=== PATIENT | female | born 1985 | race American Indian/Alaskan Native ===

== ENCOUNTER 2019-09-09 07:53 | Emergency (ER) | payer OTHER ==
[2019-09-09] MEDS ORDERED: IBUPROFEN 800 MG TAB PO ONE (08:40)
--- NOTE | 2019-09-09 09:17 | XRay Report ---
CHEST 1 VIEW INDICATION: cough fever COMPARISON: None FINDINGS: Support devices: None Heart: Normal Lungs/Pleura: No acute pulmonary or pleural findings. IMPRESSION: 1. No acute disease. Signer Name: Augustine Dunne MD Signed: 09/09/2019 9:13 AM Workstation Name: [id number]
--- NOTE | 2019-09-09 09:31 | Emergency Department Report ---
- General Chief Complaint: Headache Stated Complaint: COUGH,HEADACHE Time Seen by Provider: 09/09/19 08:28 Source: patient Mode of arrival: Ambulatory Limitations: No Limitations - History of Present Illness Initial Comments: 34-year-old female with no significant past medical history presents to the hospital complaining of cough productive of thick sputum, frontal headache, and body aches x1 week. No fever reported although low-grade fever noted here in the ED. Patient denies shortness of breath. Patient works at a [employer] with positive COVID patients. Patient has not been tested for Kovic. Patient did not get a flu shot this flu season. - Related Data Previous Rx's Medication Instructions Recorded Last Taken Type Azithromycin [Zithromax Z-GIUSEPPE] 1 dose PO DAILY 5 Days tab 09/09/19 Unknown Rx Ibuprofen [Motrin] 800 mg PO Q8HR PRN #30 tablet 09/09/19 Unknown Rx Allergies Allergy/AdvReac Type Severity Reaction Status Date / Time No Known Allergies Allergy Verified 09/09/19 07:56 ED Review of Systems ROS: Stated complaint: COUGH,HEADACHE Other details as noted in HPI Comment: All other systems reviewed and negative ED Past Medical Hx - Past Medical History Previous Medical History?: No - Surgical History Past Surgical History?: No - Social History Smoking Status: Never Smoker Substance Use Type: None - Medications Home Medications: Home Medications Medication Instructions Recorded Confirmed Last Taken Type Azithromycin [Zithromax Z-GIUSEPPE] 1 dose PO DAILY 5 Days tab 09/09/19 Unknown Rx Ibuprofen [Motrin] 800 mg PO Q8HR PRN #30 tablet 09/09/19 Unknown Rx ED Physical Exam - General Limitations: No Limitations - Other Other exam information: General: No acute distress Head: Atraumatic Eyes: normal appearance ENT: Moist mucous membranes, mild frontal sinus tenderness no maxillary sinus tenderness Neck: Normal appearance, no midline tenderness Chest: Clear to auscultation bilaterally CV: Regular rate and rhythm Abdomen: Soft, normal bowel sounds, nontender, nondistended, no rebound or guarding Back: Normal inspection Extremity: Normal inspection, full range of motion Neuro: Alert O x 3, no facial asymmetry, speech clear, no gross motor sensory deficit Psych: Appropriate behavior Skin: No rash ED Course Vital Signs 09/09/19 09/09/19 07:57 08:36 Temperature 100.3 F H 98.9 F Pulse Rate 94 H 98 H Respiratory 16 13 Rate Blood Pressure 125/74 Blood Pressure 125/74 127/78 [Left] O2 Sat by Pulse 99 96 Oximetry ED Medical Decision Making - Lab Data Lab Results 09/09/19 Range/Units 08:40 Influenza A (Rapid) Negative (Negative) Influenza B (Rapid) Negative (Negative) - Radiology Data Radiology results: report reviewed CHEST 1 VIEW INDICATION: cough fever COMPARISON: None FINDINGS: Support devices: None Heart: Normal Lungs/Pleura: No acute pulmonary or pleural findings. IMPRESSION: 1. No acute disease. - Medical Decision Making Patient with URI sinusitis symptoms. Chest x-ray negative for infiltrate. Patient will be placed on Z-Giuseppe and encouraged to receive outpatient COVID testing since she does work at a [employer] with COVID positive patients. If positive patient will need to self isolate for 2 weeks. - Differential Diagnosis Viral syndrome, coronavirus, bronchitis, sinusitis Critical Care Time: No Critical care attestation.: If time is entered above; I have spent that time in minutes in the direct care of this critically ill patient, excluding procedure time. ED Disposition Clinical Impression: Sinusitis, Viral syndrome Disposition: TO HOME OR SELFCARE Is pt being admited?: No Does the pt Need Aspirin: No Condition: Stable Instructions: Sinusitis (ED), Viral Syndrome (ED), COVID-19 Additional Instructions: Take the medication as prescribed. Take Motrin as needed for pain or fever. Follow-up with your doctor or doctor/clinic provided. Return if symptoms worsen as indicated by your discharge instructions. I recommend that she receive outpatient coronavirus testing. If your test is positive you will need to inform you job and isolate from others for 14 days. You have been provided COVID discharge instructions (you will need outpatient testing). Prescriptions: Ibuprofen [Motrin] 800 mg PO Q8HR PRN #30 tablet PRN Reason: Pain , Severe (7-10) Azithromycin [Zithromax Z-GIUSEPPE] 1 dose PO DAILY 5 Days tab Referrals: PRIMARY MD GENOVEVA [Primary Care Provider] - 3-5 Days JAYNA MEJIA MD [Staff Physician] - 3-5 Days [facility] [Provider Group] - 3-5 Days Time of Disposition: 10:01
[2019-09-09 11:55] VITALS: BP 130/80
== END 2019-09-09 10:30 | disposition home or self-care (01) ==
LOC: ED 07:53
DX: J32.9 Chronic sinusitis, unspecified (principal); B34.9 Viral infection, unspecified; Z79.899 Other long term (current) drug therapy
CPT/HCPCS: 71045; 87400

== ENCOUNTER 2019-12-22 23:34 | Observation (INO) | payer OTHER, SELFPAY ==
[2019-12-23 00:19] LABS: Mean Corpuscular HGB Conc 27 % (30-34); Platelet Count 326 K/mm3 (140-440)
[2019-12-23 00:35] LABS: Alanine Aminotransferase 10 units/L (7-56); Albumin 4.3 g/dL (3.9-5); Blood Urea Nitrogen 10 mg/dL (7-17); Calcium 9.2 mg/dL (8.4-10.2); Hemolysis Index 0
[2019-12-23 00:40] LABS: BUN/Creatinine Ratio 20
[2019-12-23 01:08] LABS: Bacteria,Urine 1+ /HPF (Negative); Bilirubin,Urine NEG (Negative); Blood,Urine NEG (Negative); Color,Urine Yellow (Yellow); Mucus,Urine 3+ /HPF; Protein,Urine <15 mg/dL mg/dL (Negative)
[2019-12-23 01:14] LABS: Hematocrit 18.8 % (30.3-42.9); Mean Corpuscular Volume 51 fl (79-97)
[2019-12-23 01:15] LABS: Red Cell Distribution Width 23.9 % (13.2-15.2)
[2019-12-23] MEDS ORDERED: SODIUM CHLORIDE 0.9% 500 ML 500 ML IV ONE ×2 (01:58→03:35)
--- NOTE | 2019-12-23 02:01 | Emergency Department Report ---
ED Abdominal Pain HPI - General Chief Complaint: Abdominal Pain Stated Complaint: STOMACH PAIN/BLEEDING PUI?: No Time Seen by Provider: 12/23/19 01:57 Source: patient Mode of arrival: Ambulatory Limitations: No Limitations - History of Present Illness Initial Comments: Patient is a 34-year-old female that presents emergency room with complaints of lower abdominal pain and vaginal bleeding. Patient states she has had vaginal b leeding and abdominal pain for 2 weeks. Patient states that her abdominal pain is a 6 out of 10. Patient states that her pain is better with rest and worse with movement and palpation. Patient states that she has been bleeding heavily for approximately 2 weeks. Patient states she has not seen a [facility]. Patient states she does not have a primary care. Patient states she just recently moved 6 months ago from [place] to [place]. Patient states the pain is a stabbing pain. Patient states she has history of uterine fibroid. Patient denies bright red blood per rectum, melena, nausea and vomiting. Patient denies fever and chills. Patient denies recent travel. Patient denies recent international travel. Patient denies exposure to the novel coronavirus. Patient denies sick contacts. Patient denies fever and chills. Patient denies cough. Patient denies diarrhea. Patient denies coming in contact with anybody with symptoms of the novel coronavirus. MD Complaint: abdominal pain -: Sudden Location: LLQ, RLQ Radiation: none Migration to: no migration Severity scale (0 -10): 6 Quality: stabbing Consistency: constant Improves With: rest Worsens With: movement, other Associated Symptoms: denies: nausea, vomiting, diarrhea, fever, chills, constipation, dysuria, hematemesis, hematochezia, melena, hematuria, syncope - Related Data Previous Rx's Medication Instructions Recorded Last Taken Type Azithromycin [Zithromax Z-GIUSEPPE] 1 dose PO DAILY 5 Days tab 09/09/19 Unknown Rx Ibuprofen [Motrin] 800 mg PO Q8HR PRN #30 tablet 09/09/19 Unknown Rx Allergies Allergy/AdvReac Type Severity Reaction Status Date / Time No Known Allergies Allergy Verified 12/23/19 03:24 ED Review of Systems ROS: Stated complaint: STOMACH PAIN/BLEEDING Other details as noted in HPI Constitutional: denies: chills, fever Eyes: denies: eye pain, eye discharge, vision change ENT: denies: ear pain, throat pain Respiratory: denies: cough, shortness of breath, wheezing Cardiovascular: denies: chest pain, palpitations Endocrine: no symptoms reported Gastrointestinal: abdominal pain. denies: nausea, diarrhea Genitourinary: abnormal menses. denies: urgency, dysuria, discharge Musculoskeletal: denies: back pain, joint swelling, arthralgia Skin: denies: rash, lesions Neurological: denies: headache, weakness, paresthesias Psychiatric: denies: anxiety, depression Hematological/Lymphatic: denies: easy bleeding, easy bruising ED Past Medical Hx - Past Medical History Previous Medical History?: Yes Additional medical history: Uterine fibroids - Surgical History Past Surgical History?: Yes Hx Appendectomy: Yes - Family History Family history: no significant - Social History Smoking Status: Never Smoker Substance Use Type: Alcohol - Medications Home Medications: Home Medications Medication Instructions Recorded Confirmed Last Taken Type Azithromycin [Zithromax Z-GIUSEPPE] 1 dose PO DAILY 5 Days tab 09/09/19 Unknown Rx Ibuprofen [Motrin] 800 mg PO Q8HR PRN #30 tablet 09/09/19 Unknown Rx ED Physical Exam - General Limitations: No Limitations General appearance: alert, in no apparent distress - Head Head exam: Present: atraumatic, normocephalic - Eye Eye exam: Present: normal appearance - ENT ENT exam: Present: mucous membranes moist - Neck Neck exam: Present: normal inspection - Respiratory Respiratory exam: Present: normal lung sounds bilaterally. Absent: respiratory distress - Cardiovascular Cardiovascular Exam: Present: regular rate, normal rhythm. Absent: systolic murmur, diastolic murmur, rubs, gallop - GI/Abdominal GI/Abdominal exam: Present: soft, tenderness (Lower abdominal tenderness to palpation.), normal bowel sounds - Extremities Exam Extremities exam: Present: normal inspection - Back Exam Back exam: Present: normal inspection - Neurological Exam Neurological exam: Present: alert, oriented X3 - Psychiatric Psychiatric exam: Present: normal affect, normal mood - Skin Skin exam: Present: warm, dry, intact, normal color. Absent: rash ED Course Vital Signs 12/22/19 12/23/19 12/23/19 23:46 01:58 02:44 Temperature 99.0 F Pulse Rate 95 H 100 H Respiratory 18 18 18 Rate Blood Pressure 118/68 O2 Sat by Pulse 100 99 100 Oximetry 12/23/19 12/23/19 12/23/19 02:45 02:59 03:00 Temperature 98 F Pulse Rate 99 H 97 H 96 H Respiratory 20 18 20 Rate Blood Pressure 111/68 115/60 O2 Sat by Pulse 100 100 100 Oximetry 12/23/19 12/23/19 12/23/19 03:10 03:14 03:20 Temperature 98 F Pulse Rate 95 H 96 H 96 H Respiratory 15 18 23 Rate Blood Pressure 99/58 108/71 111/66 O2 Sat by Pulse 98 97 100 Oximetry 12/23/19 12/23/19 12/23/19 03:30 03:45 04:00 Temperature Pulse Rate 100 H 99 H 95 H Respiratory 17 17 12 Rate Blood Pressure 120/74 122/79 124/75 O2 Sat by Pulse 100 Oximetry - Reevaluation(s) Reevaluation #1: I discussed all results with patient. I discussed plan of care with patient. Patient agrees with plan of care and admission. Patient to be admitted to the hospitalist service. 12/23/19 03:30 - Consultations Consultation #1: [facility] consulted. I discussed the case with [facility]. [facility] has accepted the patient, Dr. Peraza. 12/23/19 03:30 ED Medical Decision Making - Lab Data Result diagrams: 12/23/19 00:02 12/23/19 00:02 - Radiology Data Radiology results: report reviewed CT abdomen pelvis w con INDICATION / CLINICAL INFORMATION: aleyda lower abd pain. TECHNIQUE: Axial CT imaging of abdomen and pelvis was obtained with IV contrast. Coronal and sagittal reformatted imaging obtained and reviewed. All CT scans at this location are performed using CT dose reduction for ALARA by means of automated exposure control. COMPARISON: None available. FINDINGS: CT abdomen with contrast demonstrates normal appearance of the liver, spleen, pancreas, kidneys, and adrenal glands. Gallbladder is unremarkable. No biliary dilatation. CT pelvis with contrast demonstrates an enlarged uterus. In the fundus of the uterus, there is a large solid mass measuring 7.6 cm in diameter. This is more than likely a uterine fibroid. Additionally, there is a large mass to the left of the uterus measuring 10 cm in diameter. It is unclear if this is an ovarian mass versus a pedunculated uterine fibroid. There is a smaller solid mass between the uterus and the left adnexal mass measuring 4.8 cm that more than likely is a pedunculated uterine fibroid as well. Right ovary is noted. A normal left ovary cannot be identified. A normal appendix is present in the right lower quadrant. No free fluid. No adenopathy. GI tract is normal. Visualized lung bases are grossly clear. No significant acute osseous abnormality. IMPRESSION: 1. Enlarged uterus measuring approximately 13 cm. The uterine fundus contains a mass measuring 7.6 cm, most likely uterine fibroid. 2. There is a 10 cm left adnexal mass contiguous with the uterus. Differential diagnosis includes ovarian mass versus pedunculated uterine fibroid. 3. There is a third mass midline of the pelvis measuring 4.8 cm also contiguous with the uterine fundus, most likely pedunculated fibroid. - Medical Decision Making Patient is a 34-year-old female that presents emergency room with complaints of vaginal bleeding for 2 weeks and abdominal pain. Patient has CT scan of the abdomen which shows multiple uterine fibroids and no other acute findings. Patient had labs done which showed severe anemia. Patient was typed and crossed for packed red blood cells. Patient's given Tylenol for abdominal pain. Patient admitted to the [facility] service and mother-baby. [employer] wants the patient to have 2 units of packed red blood cells since the patient is actively bleeding from the vagina and so severely anemic. Both units were ordered. Patient will require a CBC to be done after her first unit of blood. A communication order was placed in the system for the nursing staff. - Differential Diagnosis Abnormal vaginal bleeding. Uterine fibroid, anemia, abdominal pain Critical Care Time: Yes Critical care time in (mins) excluding proc time.: 35 Critical care attestation.: If time is entered above; I have spent that time in minutes in the direct care of this critically ill patient, excluding procedure time. Critical Care Time: 35 minutes ED Disposition Clinical Impression: Abnormal vaginal bleeding Anemia Qualifiers: Anemia type: unspecified type Qualified Code(s): D64.9 - Anemia, unspecified Uterine fibroid Qualifiers: Uterine leiomyoma location: unspecified location Qualified Code(s): D25.9 - Leiomyoma of uterus, unspecified Disposition: OP ADMIT IP TO THIS HOSP Is pt being admited?: Yes Does the pt Need Aspirin: No Condition: Critical Time of Disposition: 03:31
--- NOTE | 2019-12-23 02:48 | Cat Scan Report ---
CT abdomen pelvis w con INDICATION / CLINICAL INFORMATION: aleyda lower abd pain. TECHNIQUE: Axial CT imaging of abdomen and pelvis was obtained with IV contrast. Coronal and sagittal reformatte d imaging obtained and reviewed. All CT scans at this location are performed using CT dose reduction for ALARA by means of automated exposure control. COMPARISON: None available. FINDINGS: CT abdomen with contrast demonstrates normal appearance of the liver, spleen, pancreas, kidneys, and adrenal glands. Gallbladder is unremarkable. No biliary dilatation. CT pelvis with contrast demonstrates an enlarged uterus. In the fundus of the uterus, there is a larg e solid mass measuring 7.6 cm in diameter. This is more than likely a uterine fibroid. Additionally, there is a large mass to the left of the uterus measuring 10 cm in diameter. It is unclear if this is an ovarian mass versus a pedunculated uterine fibroid. There is a smaller solid mass between the soboba isidro and the left adnexal mass measuring 4.8 cm that more than likely is a pedunculated uterine fibroi d as well. Right ovary is noted. A normal left ovary cannot be identified. A normal appendix is prese nt in the right lower quadrant. No free fluid. No adenopathy. GI tract is normal. Visualized lung bases are grossly clear. No significant acute osseous abnormality. IMPRESSION: 1. Enlarged uterus measuring approximately 13 cm. The uterine fundus contains a mass measuring 7.6 cm , most likely uterine fibroid. 2. There is a 10 cm left adnexal mass contiguous with the uterus. Differential diagnosis includes ova tuyet mass versus pedunculated uterine fibroid. 3. There is a third mass midline of the pelvis measuring 4.8 cm also contiguous with the uterine fund us, most likely pedunculated fibroid. Signer Name: Trish Soto MD Signed: 12/23/2019 2:44 AM Workstation Name: [id number]
[2019-12-23] MEDS ORDERED: ACETAMINOPHEN 500 MG TAB PO ONE (03:22)
[2019-12-23] MEDS ORDERED: ACETAMINOPHEN 500 MG TAB ONE (03:25)
[2019-12-23 05:40] LABS: Anisocytosis 1+; Basophils % (Manual) 0 % (0.0-1.8); Hypochromasia 1+; Platelet Estimate Consistent w Auto; Total Cells Counted 100
[2019-12-23 08:12] LABS: Hematocrit 19.7 % (30.3-42.9); Hemoglobin 5.4 gm/dl (10.1-14.3)
[2019-12-23] MEDS: IBUPROFEN 800 MG TAB PO PRN ×2 (09:05→15:28)
[2019-12-23] MEDS ORDERED: SODIUM CHLORIDE 0.9% 250ML 250 ML ONE (09:26)
[2019-12-23] MEDS ORDERED: medroxyPROGESTERone ACETATE 5 MG TAB PO SCH (10:00)
[2019-12-23 12:56] LABS: Mean Corpuscular HGB Conc 29 % (30-34); Platelet Count 247 K/mm3 (140-440); Red Blood Count 3.88 M/mm3 (3.65-5.03)
[2019-12-23 13:16] LABS: Hematocrit 22.5 % (30.3-42.9); Hemoglobin 6.4 gm/dl (10.1-14.3); Mean Corpuscular Volume 58 fl (79-97)
--- NOTE | 2019-12-23 14:59 | History and Physical Report ---
History of Present Illness Date of examination: 12/23/19 Date of admission: 12/23/19 03:34 History of present illness: PT is a G0 who presented today with 2 weeks of heavy menses, although she is no longer bleeding. Provera given earlier today. Hgn on admission was 5.0. Pt is no s/p 2 units PRBCs. No anemic sxs. Her menses are usually heavy but not as heavy and prolonged as this past one. She notes a h/o fibroids. Pt had a CT showing a larger fibroid uterus. U/S not done. Past History Past Medical History: other (anemia) Past Surgical History: appendectomy - Obstetrical History : 0 Medications and Allergies Allergies Allergy/AdvReac Type Severity Reaction Status Date / Time No Known Allergies Allergy Verified 12/23/19 03:24 Home Medications Medication Instructions Recorded Confirmed Last Taken Type Azithromycin [Zithromax Z-GIUSEPPE] 1 dose PO DAILY 5 Days tab 09/09/19 12/23/19 Unknown Rx Ibuprofen [Motrin] 800 mg PO Q8HR PRN #30 tablet 09/09/19 12/23/19 Unknown Rx Active Meds: Active Medications Ibuprofen (Ibuprofen) 800 mg PO Q8H PRN PRN Reason: Pain, Mild (1-3) Last Admin: 12/23/19 09:05 Dose: 800 mg Documented by: Medroxyprogesterone Acetate (Provera) 10 mg PO QDAY KING[place]ON Last Admin: 12/23/19 09:16 Dose: 10 mg Documented by: Review of Systems All systems: negative (except HPI) - Vital Signs Vital signs: Vital Signs Temp Pulse Resp BP Pulse Ox 99.0 F 95 H 18 118/68 100 12/22/19 23:46 12/22/19 23:46 12/22/19 23:46 12/22/19 23:46 12/22/19 23:46 Temp Pulse Resp BP Pulse Ox 98.2 F 78 16 113/72 100 12/23/19 11:46 12/23/19 11:46 12/23/19 11:46 12/23/19 11:46 12/23/19 11:46 Results Result Diagrams: 12/23/19 12:28 12/23/19 00:02 Abnormal lab results 08/15/20 08/15/20 08/15/20 Range/Units 00:02 00:02 01:58 Hgb 5.0 L* (10.1-14.3) gm/dl Hct 18.8 L* (30.3-42.9) % MCV 51 L (79-97) fl MCH 13 L (28-32) pg MCHC 27 L (30-34) % RDW 23.9 H (13.2-15.2) % Creatinine 0.5 L (0.6-1.2) mg/dL Crossmatch See Detail 12/23/19 12/23/19 Range/Units 07:42 12:28 Hgb 5.4 L* 6.4 L (10.1-14.3) gm/dl Hct 19.7 L* 22.5 L (30.3-42.9) % MCV 58 L (79-97) fl MCH 17 L (28-32) pg MCHC 29 L (30-34) % RDW 35.0 H (13.2-15.2) % Creatinine (0.6-1.2) mg/dL Crossmatch All other labs normal. Assessment and Plan - Patient Problems (1) Abnormal vaginal bleeding Current Visit: Yes Status: Acute Plan to address problem: Will send home with Provera. PT advised to f/u in office in a week (2) Anemia Current Visit: Yes Status: Acute Qualifiers: Anemia type: unspecified type Qualified Code(s): D64.9 - Anemia, unspecified Plan to address problem: Will send home with Iron BID. (3) Uterine fibroid Current Visit: Yes Status: Acute Qualifiers: Uterine leiomyoma location: unspecified location Qualified Code(s): D25.9 - Leiomyoma of uterus, unspecified
--- NOTE | 2019-12-23 15:15 | Short Stay Summary ---
Short Stay Documentation Date of service: 12/23/19 Narrative H&P: Patient presented with anemia and menorrhagia. Her hemoglobin was 5.0. After 2 units of blood her hemoglobin was up to 6.4. Vitals are stable. Patient sent home with a prescription for Provera for 10 days and twice daily iron. - History H&P: dictated - Allergies and Medications Current Medications: Allergies No Known Allergies Allergy (Verified 12/23/19 03:24) Home Medications Medication Instructions Recorded Confirmed Last Taken Type Azithromycin [Zithromax Z-GIUSEPPE] 1 dose PO DAILY 5 Days tab 09/09/19 12/23/19 Unknown Rx Ibuprofen [Motrin] 800 mg PO Q8HR PRN #30 tablet 09/09/19 12/23/19 Unknown Rx Ferrous Sulfate [Feosol 325 MG tab] 325 mg PO BID #60 tablet 12/23/19 Unknown Rx medroxyPROGESTERone ACETATE 10 mg PO QDAY #10 tablet 12/23/19 Unknown Rx [Provera] Active Medications Ibuprofen (Ibuprofen) 800 mg PO Q8H PRN PRN Reason: Pain, Mild (1-3) Last Admin: 12/23/19 09:05 Dose: 800 mg Documented by: Medroxyprogesterone Acetate (Provera) 10 mg PO QDAY K[place]ON Last Admin: 12/23/19 09:16 Dose: 10 mg Documented by: - Disposition Condition at discharge: Stable Disposition: DC-01 TO HOME OR SELFCARE - Discharge Diagnoses (1) Abnormal vaginal bleeding Status: Acute (2) Anemia Status: Acute Qualifiers: Anemia type: unspecified type Qualified Code(s): D64.9 - Anemia, unspecified (3) Uterine fibroid Status: Acute Qualifiers: Uterine leiomyoma location: unspecified location Qualified Code(s): D25.9 - Leiomyoma of uterus, unspecified Short Stay Discharge Plan Follow up with: PRIMARY CARE, [Primary Care Provider] - 3-5 Days Prescriptions: Ferrous Sulfate [Feosol 325 MG tab] 325 mg PO BID #60 tablet medroxyPROGESTERone ACETATE [Provera] 10 mg PO QDAY #10 tablet
[2019-12-23 15:55] VITALS: BP 125/81
== END 2019-12-23 15:56 | disposition home or self-care (01) ==
LOC: ED 23:34 → OB 12-23 03:34
PROVIDERS: ADMIT Obstetrics & Gynecology; ATTEND Obstetrics & Gynecology
DX: D25.9 Leiomyoma of uterus, unspecified (principal); N93.9 Abnormal uterine and vaginal bleeding, unspecified; D64.9 Anemia, unspecified; Z79.899 Other long term (current) drug therapy
CPT/HCPCS: 36415; 36430; 74177; 80053; 81001; 84702; 84703; 85007; 85014; 85018; 85025; 85027; 86850; 86900; 86901; 86920; 96360; 96361; 99291; G0378; J7040; J7050; P9016; Q9967

== ENCOUNTER 2020-09-06 12:53 | Emergency (ER) | payer SELFPAY ==
[2020-09-06 14:23] VITALS: BP 118/71
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
== END 2020-09-06 15:40 | disposition home or self-care (01) ==
LOC: ED 12:53
DX: S19.9XXA Unspecified injury of neck, initial encounter (principal); K08.89 Other specified disorders of teeth and supporting structures; Z90.49 Acquired absence of other specified parts of digestive tract; Z79.899 Other long term (current) drug therapy; V49.59XA Passenger injured in collision with other motor vehicles in traffic accident, initial encounter; Y93.89 Activity, other specified; Y92.488 Other paved roadways as the place of occurrence of the external cause; Y99.8 Other external cause status
CPT/HCPCS: 99281

== ENCOUNTER 2021-08-29 05:06 | Emergency (ER) | payer SELFPAY ==
[2021-08-29 06:39] LABS: Blood Urea Nitrogen 10 mg/dL (7-17); Calcium 8.8 mg/dL (8.4-10.2); Hemolysis Index 4
[2021-08-29 06:46] LABS: BUN/Creatinine Ratio 20
[2021-08-29 06:51] LABS: Mean Corpuscular HGB Conc 26 % (30-34); Platelet Count 607 K/mm3 (140-440); Red Blood Count 4.23 M/mm3 (3.65-5.03)
[2021-08-29 07:08] LABS: Hematocrit 22.8 % (30.3-42.9); Mean Corpuscular Volume 54 fl (79-97); Red Cell Distribution Width 25.3 % (13.2-15.2)
[2021-08-29 07:57] VITALS: BP 113/59
--- NOTE | 2021-08-29 07:57 | Emergency Department Report ---
ED Recheck HPI - General Chief Complaint: Recheck/Abnormal Lab/Rx Stated Complaint: LAB RECHECK Time Seen by Provider: 08/29/21 07:44 Source: patient Mode of arrival: Ambulatory Limitations: No Limitations - History of Present Illness Initial Comments: Ms. Dillon is a 36-year-old -[place] female that comes to the emergency room with reports of acute on chronic anemia. She went to a diet doctor and they did labs before giving her her phentermine. They called her and told her that she had a hemoglobin of 6. Patient has acute on chronic anemia. Per the EMR her hemoglobin has been as low as 5. She does have dysfunctional uterine bleeding due to fibroids. Her last menstrual period was beginning of last month. She knows that she has fibroids and needs to have surgery but she has not followed up with [facility]. She comes in today for lab recheck. She has no shortness of breath. No tachycardia. No hypotension. She is ambulatory wi thout shortness of breath. She is in no acute distress on exam. Patient states that in the past she has had to have blood transfusions. However, she still does not follow-up with [facility] because she wants to have children. Have educated her about fibroids and their space-occupying implications and encouraged her that if she does want to get she needs to see [facility] to address the fibroids first. Patient is not actively bleeding at this time. Complaint: other - Related Data Previous Rx's Medication Instructions Recorded Last Taken Type Docusate Sodium [Colace] 100 mg PO BID #60 capsule 08/29/21 Unknown Rx Ferrous Sulfate [Feosol 325 MG tab] 325 mg PO BID #60 tablet 08/29/21 Unknown Rx Allergies Allergy/AdvReac Type Severity Reaction Status Date / Time No Known Allergies Allergy Verified 12/23/19 03:24 ED Review of Systems ROS: Stated complaint: LAB RECHECK Other details as noted in HPI Comment: All other systems reviewed and negative ED Past Medical Hx - Past Medical History Previous Medical History?: Yes Additional medical history: Uterine fibroids: Chronic anemia due to dysfunctional uterine bleeding - Surgical History Hx Appendectomy: Yes - Social History Smoking Status: Never Smoker Substance Use Type: Alcohol - Medications Home Medications: Home Medications Medication Instructions Recorded Confirmed Last Taken Type Docusate Sodium [Colace] 100 mg PO BID #60 capsule 08/29/21 Unknown Rx Ferrous Sulfate [Feosol 325 MG tab] 325 mg PO BID #60 tablet 08/29/21 Unknown Rx ED Physical Exam - General Limitations: No Limitations General appearance: alert, in no apparent distress - Head Head exam: Present: atraumatic, normocephalic - Eye Eye exam: Present: normal appearance - ENT ENT exam: Present: mucous membranes moist - Neck Neck exam: Present: normal inspection - Respiratory Respiratory exam: Present: normal lung sounds bilaterally. Absent: respiratory distress - Cardiovascular Cardiovascular Exam: Present: regular rate, normal rhythm. Absent: systolic murmur, diastolic murmur, rubs, gallop - GI/Abdominal GI/Abdominal exam: Present: soft, normal bowel sounds - Extremities Exam Extremities exam: Present: normal inspection - Back Exam Back exam: Present: normal inspection - Neurological Exam Neurological exam: Present: alert, oriented X3 - Psychiatric Psychiatric exam: Present: normal affect, normal mood - Skin Skin exam: Present: warm, dry, intact, normal color. Absent: rash ED Course Vital Signs 08/29/21 08/29/21 08/29/21 05:09 05:46 07:56 Temperature 97.6 F 98 F Pulse Rate 69 76 Respiratory 20 16 Rate Blood Pressure 102/61 Blood Pressure 113/59 [Left] O2 Sat by Pulse 97 99 Oximetry - Reevaluation(s) Reevaluation #1: 08/29/21 11:27 Patient takes a vitamin daily ED Recheck MDM - Core Measures Measure Exclusions: not indicated - Medical Decision Making Vital Signs 08/29/21 08/29/21 08/29/21 05:09 05:46 07:56 Temperature 97.6 F 98 F Pulse Rate 69 76 Respiratory 20 16 Rate Blood Pressure 102/61 Blood Pressure 113/59 [Left] O2 Sat by Pulse 97 99 Oximetry No hypotension or tachycardia. No chest pain or shortness of breath. Labs 08/29/21 08/29/21 06:12 06:12 WBC 6.2 RBC 4.23 Hgb 6.0 L Hct 22.8 L MCV 54 L MCH 14 L MCHC 26 L RDW 25.3 H Plt Count 607 H Coffey % (Auto) 6.0 Seg Neutrophils % 64.3 Sodium 138 Potassium 3.8 Chloride 102.0 Carbon Dioxide 25 Anion Gap 15 BUN 10 Creatinine 0.5 L Estimated GFR > 60 BUN/Creatinine Ratio 20 Glucose 120 H Calcium 8.8 Patient has asymptomatic acute on chronic anemia. I am discharging her to home with [facility] follow-up. I spent over 20 minutes talking with her about the implications of fibroids, bleeding and anemia. I have advised her not to take diet pills at this time. On discharge exam patient is ambulatory with no systemic complaints. She is in no acute distress. No chest pain or shortness of breath. Patient being discharged home with discharge plan of care including primary and [facility] follow-up. She verbalizes understanding of plan of care. I have sent her home on iron and Colace. She should take this in addition to her vitamin. Critical care attestation.: If time is entered above; I have spent that time in minutes in the direct care of this critically ill patient, excluding procedure time. ED Disposition Clinical Impression: Acute on chronic anemia, Medical non-compliance Obesity Qualifiers: Obesity type: due to excess calories Uterine fibroid Qualifiers: Uterine leiomyoma location: unspecified location Qualified Code(s): D25.9 - Leiomyoma of uterus, unspecified Disposition: 01 HOME / SELF CARE / HOMELESS Is pt being admited?: No Does the pt Need Aspirin: No Condition: Stable Instructions: Uterine Fibroids Additional Instructions: TAKE DAILY VITAMIN TAKE IRON AND COLACE GIVEN TO YOU TODAY STAY WELL HYDRATED WITH WATER AVOID MOTRIN/IBRUPROFEN FOLLOW UP WITH OBGYN REFERRAL BELOW Prescriptions: Docusate Sodium [Colace] 100 mg PO BID #60 capsule Ferrous Sulfate [Feosol 325 MG tab] 325 mg PO BID #60 tablet Referrals: HERNAN PERRIN MD [Staff Physician] - 3-5 Days JAYNA MEJIA MD [Staff Physician] - 3-5 Days Time of Disposition: 07:55
[2021-08-29 12:44] LABS: Basophils % (Manual) 0 % (0.0-1.8); Total Cells Counted 100
[2021-08-29 12:45] LABS: Anisocytosis 2+; Hypochromasia 3+; Poikilocytosis 1+; Tear Drop Cells 1+
[2021-08-29 12:46] LABS: Platelet Estimate Consistent w Auto
== END 2021-08-29 08:53 | disposition home or self-care (01) ==
LOC: ED 05:06
DX: D64.9 Anemia, unspecified (principal); D25.9 Leiomyoma of uterus, unspecified; G89.29 Other chronic pain; E66.9 Obesity, unspecified; Z91.14 Patient's other noncompliance with medication regimen; Z79.899 Other long term (current) drug therapy
CPT/HCPCS: 36415; 80048; 85007; 85025; 99283